=== PATIENT | female | born 1985 ===

== ENCOUNTER 2020-05-16 21:35 | Inpatient (IN) | payer MEDICAID ==
[~2020-05-16] VITALS: Ht 180.3 cm; Wt 111.9 kg
--- NOTE | 2020-05-16 21:38 | NUR ---
VINICIUS SCHMITZ [age] presented to unit via from ED, accompanied by SO, with c/o contractions q6m . VINICIUS SCHMITZ weighed, gowned, voided, and to bed. EFHM and TOCO applied, VS taken. VINICIUS SCHMITZ oriented to bed controls, call light, TV, heat, and A/C controls.
[2020-05-16] MEDS ORDERED: PNV1TABL9 PO (21:59)
[2020-05-16 22:00] VITALS: BP 125/61
[2020-05-16 22:03] VITALS: BP 125/61
[2020-05-16 22:09] VITALS: BP 125/61
[2020-05-16 22:56] LABS: BILIRUBIN,URINE NEGATIVE (NEGATIVE); CLARITY,URINE CLOUDY; COLOR,URINE YELLOW; GLUCOSE, URINE (UA) NEGATIVE (NEGATIVE); KETONES,URINE NEGATIVE (NEGATIVE); LEUKOCYTE ESTERASE ,URINE NEGATIVE (NEGATIVE); NITRITE,URINE NEGATIVE (NEGATIVE); PROTEIN,URINE NEGATIVE (NEGATIVE)
[2020-05-16 23:02] LABS: AMORPHOUS SEDIMENT,UR MOD AMOR PHOSPHATE /LPF; BACTERIA,URINE FEW /HPF; WBC,URINE RARE /HPF
[2020-05-16] MEDS ORDERED: D5 LR IV SOLUTION 1,000 ML IV ONE (23:03)
[2020-05-16 23:09] LABS: AMPHETAMINE SCREEN, URINE NEGATIVE (NEGATIVE); BARBITURATE SCREEN URINE NEGATIVE (NEGATIVE); BENZODIAZEPINES SCREEN URINE NEGATIVE (NEGATIVE); CANNABINOID SCREEN, URINE NEGATIVE (NEGATIVE); COCAINE SCREEN URINE NEGATIVE (NEGATIVE); METHADONE STAT NEGATIVE (NEGATIVE); METHAMPHETAMINE SCREEN URINE S NEGATIVE (NEGATIVE); OPIATE SCREEN URINE NEGATIVE (NEGATIVE); OXYCODONE STAT NEGATIVE (NEGATIVE); PROPOXYPHENE STAT NEGATIVE (NEGATIVE); TRICYCLIC ANTIDEPRESSANTS SCRE NEGATIVE (NEGATIVE)
[2020-05-16] MEDS: D5 LR IV SOLUTION 1,000 ML IV SCH (23:25)
[2020-05-16] MEDS ORDERED: fentaNYL 2 mcg/ml BUPIVA 0.125 100 ML ONE (23:51)
[2020-05-17] VITALS (60 sets, daily range): BP systolic 105–138; BP diastolic 51–96
[2020-05-17 00:36] LABS: BASOPHILS % (AUTO) 0 % (0-10); EOSINOPHILS # (AUTO) 0.1 10^3/uL (0.0-0.3); EOSINOPHILS % (AUTO) 1 % (0-10); HEMATOCRIT 38 % (35-52); HEMOGLOBIN 12.5 g/dL (11.5-16.0); LYMPHOCYTES # (AUTO) 2.4 10^3/uL (1.0-4.0); LYMPHOCYTES % (AUTO) 18 % (12-44); MEAN CORPUSCULAR HEMOGLOBIN 30 pg (25-34); MEAN CORPUSCULAR HGB CONC 33 g/dL (32-36); MEAN CORPUSCULAR VOLUME 92 fL (80-99); MEAN PLATELET VOLUME 11.4 fL (9.0-12.2); MONOCYTES # (AUTO) 0.8 10^3/uL (0.0-1.0); MONOCYTES % (AUTO) 6 % (0-12); NEUTROPHILS # (AUTO) 9.5 10^3/uL (1.8-7.8); NEUTROPHILS % (AUTO) 74 % (42-75); PLATELET COUNT 251 10^3/uL (130-400); WHITE BLOOD COUNT 12.9 10^3/uL (4.3-11.0)
[2020-05-17] MEDS ORDERED: fentaNYL INJECTION 100 MCG/2 ML AMP ONE (01:15)
[2020-05-17] MEDS ORDERED: NALOXONE 0.4 MG/ML 1 ML (NARCAN) VIAL IV PRN (01:15)
[2020-05-17] MEDS ORDERED: fentaNYL INJECTION 100 MCG/2 ML AMP INJ ONE (01:15)
[2020-05-17] MEDS ORDERED: ONDANSETRON 4 MG/2 ML (SDV) Z0FRAN IV PRN (01:15)
[2020-05-17] MEDS ORDERED: LACTATED RINGERS 1,000 ML IV ONE ×2 (01:15)
[2020-05-17] MEDS ORDERED: LIDOCAINE PF 2% 5 ML (XYLOCAINE) VIAL ONE (01:37)
[2020-05-17] MEDS ORDERED: BUPIVACAINE 0.25% 30 ML (SENSORCAINE) VIAL ONE ×2 (01:37→10:27)
[2020-05-17] MEDS: EPIDURAL (fentaNYL 2 MCG/ML BUPIVA 0.125%)100 ML BAG EPI PRN ×2 (01:37→09:53)
[2020-05-17] MEDS ORDERED: CATHETER FLUSH 10 ML SYR IV SCH ×2 (06:00→14:00)
[2020-05-17] MEDS: D5 LR IV SOLUTION 1,000 ML IV SCH (07:40)
[2020-05-17] MEDS ORDERED: OXYTOCIN PRE-MIX DRIP 500 ML IV SCH ×2 (08:00→11:15)
--- NOTE | 2020-05-17 08:50 | History & Physical-OB/GYN ---
ROGERS FIELD MED STUDENT 05/17/20 0850: OB - Chief Complaint & HPI Date/Time Date of Admission: Date of Admission: May 16, 2020 at 23:31 Chief Complaint/History OB-Reason for Admission/Chief: Onset of Labor Hx : 5 Hx Para: 4 Expected Date of Delivery: May 28, 2020 Gestational Age in Weeks: 38 Gestational Age in Days: 5 Allergies and Home Medications Allergies Coded Allergies: No Known Drug Allergies (Unverified , 05/16/20) Home Medications Pnv Cmb#21/Iron/Folic Acid 1 Each Tablet, 1 EACH PO DAILY, (Reported) Patient Home Medication List Home Medication List Reviewed: No OB - History Hx of Present Care: Yes Ultrasounds: Normal mid trimester US Obstetrical Complications: None Medical Complications: None Information Induced Hypertension: No Maternal Gestational Diabetes: No Hemorrhage: No Obstetrical History Hx : 5 Hx Para: 4 Hx # Term Pregnancies: 4 Hx # Pregnancies: 0 Hx Termination: No Hx Total # of Abortions (Spona: 0 Hx Multiple Gestation: No Hx Ectopic : No Hx Stillbirth: No Hx Complication: No Hx Induced Hypertens: No Hx Maternal Gestational Diabet: No Hx Hemorrhage: No Delivery History Adverse Rxn to Tranfusion: No Patient Past Medical History Depression Insomnia Social History/Family History HIV/AIDS: No Recent Infectious Disease Expo: No Sexually Transmitted Disease: No Alcohol Use: Denies Use Recreational Drug Use: No Smoking Cessation: Current every day smoker Immunizations Hepatitis A: Yes Hepatitis B: Yes Date of Influenza Vaccine: Mar 16, 2020 OB - Admission Exam Physical Exam Vitals: Vital Signs 05/17/20 05/17/20 07:40 07:45 Temp 36.4 Pulse 78 Resp 18 B/P (MAP) 117/60 (79) Pulse Ox 96 O2 Delivery Room Air HEENT: Eyes non-injected Lungs: Clear Abdomen: Gravid Extremities: Normal Cervical Dilatation: 5cm Effacement: 75% Station: -3 Membranes: Intact Amniotic Fluid: Clear Heart Rate: 130's Accelerations: Accelerations Present Decelerations: No Decelerations Short Term Variability: Present Delinquency Prevention Officer Variability: Average (6-25) Contractions on Admission: < 5 Minutes Apart Intensity: Firm Romo Scoring Tool (Modified) Dilation (cm): >5cm (3) Effacement (%): 51-79% (2) Descent/Station: -3 (0) Cervix Consistency: Soft (2) Cervix Position: Anterior (2) Labs Laboratory Tests Test 05/16/20 21:50 05/16/20 23:30 05/16/20 23:55 Range/Units Urine Color YELLOW Urine Clarity CLOUDY Urine pH 7.0 5-9 Urine Specific [place] 1.020 1.016-1.022 Urine Protein NEGATIVE NEGATIVE Urine Glucose (UA) NEGATIVE NEGATIVE Urine Ketones NEGATIVE NEGATIVE Urine Nitrite NEGATIVE NEGATIVE Urine Bilirubin NEGATIVE NEGATIVE Urine Urobilinogen 1.0 < = 1.0 MG/DL Urine Leukocyte Esterase NEGATIVE NEGATIVE Urine RBC (Auto) NEGATIVE NEGATIVE Urine RBC NONE /HPF Urine WBC RARE /HPF Urine Squamous Epithelial Cells 2-5 /HPF Urine Crystals PRESENT H /LPF Urine Amorphous Sediment MOD ROQUE PHOSPHATE H /LPF Urine Bacteria FEW H /HPF Urine Casts NONE /LPF Urine Mucus NEGATIVE /LPF Urine Culture Indicated NO Urine Opiates Screen NEGATIVE NEGATIVE Urine Oxycodone Screen NEGATIVE NEGATIVE Urine Methadone Screen NEGATIVE NEGATIVE Urine Propoxyphene Screen NEGATIVE NEGATIVE Urine Barbiturates Screen NEGATIVE NEGATIVE Ur Tricyclic Antidepressants Screen NEGATIVE NEGATIVE Urine Phencyclidine Screen NEGATIVE NEGATIVE Urine Amphetamines Screen NEGATIVE NEGATIVE Urine Methamphetamines Screen NEGATIVE NEGATIVE Urine Benzodiazepines Screen NEGATIVE NEGATIVE Urine Cocaine Screen NEGATIVE NEGATIVE Urine Cannabinoids Screen NEGATIVE NEGATIVE White Blood Count 12.9 H 4.3-11.0 10^3/uL Red Blood Count 4.16 3.80-5.11 10^6/uL Hemoglobin 12.5 11.5-16.0 g/dL Hematocrit 38 35-52 % Mean Corpuscular Volume 92 80-99 fL Mean Corpuscular Hemoglobin 30 25-34 pg Mean Corpuscular Hemoglobin Concent 33 32-36 g/dL Red Cell Distribution Width 15.3 H 10.0-14.5 % Platelet Count 251 130-400 10^3/uL Mean Platelet Volume 11.4 9.0-12.2 fL Immature Granulocyte % (Auto) 1 % Neutrophils (%) (Auto) 74 42-75 % Lymphocytes (%) (Auto) 18 12-44 % Monocytes (%) (Auto) 6 0-12 % Eosinophils (%) (Auto) 1 0-10 % Basophils (%) (Auto) 0 0-10 % Neutrophils # (Auto) 9.5 H 1.8-7.8 10^3/uL Lymphocytes # (Auto) 2.4 1.0-4.0 10^3/uL Monocytes # (Auto) 0.8 0.0-1.0 10^3/uL Eosinophils # (Auto) 0.1 0.0-0.3 10^3/uL Basophils # (Auto) 0.0 0.0-0.1 10^3/uL Immature Granulocyte # (Auto) 0.1 0.0-0.1 10^3/uL OB - Assessment/Plan/Diagnosis Assessment Assessment: active labor Admission Dx Active at term labor Admission Status: Inpatient Order (span 2 midnights) Reason for Inpatient Admission: Active labor Plan Plan: Expectant Management GAIL POWERS MD 05/17/20 1602: OB - Chief Complaint & HPI Date/Time Time Seen by a Provider: 08:50 Allergies and Home Medications Allergies Coded Allergies: No Known Drug Allergies (Unverified , 05/16/20) Home Medications Pnv Cmb#21/Iron/Folic Acid 1 Each Tablet, 1 EACH PO DAILY, (Reported) OB - Admission Exam Physical Exam Abdomen: Gravid Extremities: Normal Cervical Dilatation: 5cm Station: -3 Membranes: Intact Heart Rate: 130's Accelerations: Accelerations Present Short Term Variability: Present Chcf Variability: Average (6-25) Contractions on Admission: < 5 Minutes Apart Intensity: Firm Supervisory-Addendum Brief Verification & Attestation Participated in pt care: history, MDM, physical Personally performed: exam, history, MDM Care discussed with: Medical Student Procedures: n/a I saw and examined patient and did the physical exam as documented in my section. Gestational age 38w3d. Contractions spaced and minimal change, AROM for augmentation. ROGERS FIELD MED STUDENT May 17, 2020 08:50 GAIL POWERS MD May 17, 2020 16:02
--- NOTE | 2020-05-17 10:50 | NUR ---
pitocin increased to 999ml/hr per verbal order of dr pina 1053 spontaneous vaginal delivery of placenta with cord attached. fundal massage per med student and dr pina with lt rubra noted and no clots expressed. 1107 plan of care reviewed with pt. ff1/u with lt rubra noted, no clots expressed. vss. pt assisted out of lithotomy position and to sf. IV infiltrated/dc'd. 1118 iv restarted in right hand 1122 vss ff1/u with lt rubra noted, no clots expressed. vss 1137 vss. ff2/u with mod rubra noted, no clots expressed. 1155 vss. ff2/u with lt-mod rubra noted and 2 4cm clots expressed.
--- NOTE | 2020-05-17 10:55 | Progress Note ---
Standard Progress Note Progress Notes/Assess & Plan Date Seen by a Provider: May 17, 2020 Time Seen by a Provider: 10:30 Progress/Assessment & Plan Called to labor and delivery for increased pain with contraction. Pt was dilated to 7 cm and has had more pain over the past hour. 0.25% Bupivicaine 6 ml via the epidural catheter. Returned 10 minutes later to check on the patients pain relief and she was complete and pushing for delivery. Rapid progression of labor is most likely the cause for her increased pain with contractions. JIM SOLIMAN DO May 17, 2020 10:55
--- NOTE | 2020-05-17 11:11 | OB Labor & Delivery Record ---
Vag Delivery Note Vag Delivery Note Date of Delivery: 05/17/20 Preoperative Diagnosis: Renu Hyman is a (35 /Para 5 / 4,Gestational Age (wks)38with 3 days Postoperative Diagnosis: Same Surgeon: GAIL POWERS Gasoline Truck Operator: Mariluz Messer, MS3 Anesthesia: Epidural Delivery Type: Findings: Viable female , apgars 9/9, weight 8#4 Lacerations: bilateral periurethral abrasions, perineal abrasion Intact placenta with 3 vessel cord. No nuchal cord, body cord or shoulder dystocia Estimated Blood Loss: 350 ml Complications: None Condition: Stable Description of Procedure: The patient is a 35 year old female who presented in active labor. She was admitted and informed consent was obtained. Her labor course was remarkable for augmentation with AROM and pitocin. She progressed to complete dilatation and began to push. She was then set up for delivery. The infant's head was delivered atraumatically in the OA position. The shoulders and remainder of the 's body were then delivered without difficulty. Upon delivery, the was vigorous and placed on maternal abdomen. After a delay the cord was doubly clamped and cut and the remained on maternal abdomen. An intact placenta with 3-vessel cord delivered via Zackery and there was found to be minimal bleeding.~ Vigorous fundal massage was performed and the fundus was found to be firm. IV oxytocin was given. Examination of the vagina and perineum revealed bilateral periurethral abrasions and perineal abrasion not requiring repair. Following the delivery, sponge, instrument and needle counts were correct. Mom and baby were both in stable condition in the labor suite. Vitals - Labs Vital Signs - I&O Vital Signs Date Time Temp Pulse Resp B/P (MAP) Pulse Ox O2 Delivery O2 Flow Rate FiO2 05/17/20 09:30 Room Air 05/17/20 09:20 36.3 74 18 117/59 (78) Room Air 05/17/20 09:15 Room Air 05/17/20 09:05 77 18 106/63 (77) Room Air 05/17/20 09:00 Room Air 05/17/20 08:50 74 18 106/51 (69) Room Air 05/17/20 08:45 Room Air 05/17/20 08:35 75 18 118/59 (78) Room Air 05/17/20 08:30 Room Air 05/17/20 08:20 75 18 117/57 (77) Room Air 05/17/20 08:15 Room Air 05/17/20 08:05 76 18 116/64 (81) Room Air 05/17/20 08:00 Room Air 05/17/20 07:50 69 18 121/68 (85) Room Air 05/17/20 07:45 36.4 Room Air 05/17/20 07:40 78 18 117/60 (79) 96 Room Air 05/17/20 07:30 Room Air 05/17/20 07:25 65 18 120/57 (78) 95 Room Air 05/17/20 07:15 Room Air 05/17/20 07:05 72 18 119/59 (79) 96 Room Air 05/17/20 07:00 70 18 108/58 (75) 96 Room Air 05/17/20 06:45 69 18 118/59 (78) 96 Room Air 05/17/20 06:30 68 18 113/56 (75) 96 Room Air 05/17/20 06:15 66 18 112/55 (74) 96 Room Air 05/17/20 06:00 73 18 114/59 (77) 96 Room Air 05/17/20 05:45 79 18 117/56 (76) 97 Room Air 05/17/20 05:30 77 18 113/56 (75) 97 Room Air 05/17/20 05:15 81 18 122/60 (80) 97 Room Air 05/17/20 05:00 66 18 128/71 (90) 97 Room Air 05/17/20 04:45 36.8 71 18 115/64 (81) 96 Room Air 05/17/20 04:30 78 18 126/59 (81) 97 Room Air 05/17/20 04:15 79 18 110/58 (75) 95 Room Air 05/17/20 04:00 72 18 112/58 (76) 96 Room Air 05/17/20 03:45 76 18 121/57 (78) 97 Room Air 05/17/20 03:30 74 18 122/56 (78) 98 Room Air 05/17/20 03:15 74 18 112/55 (74) 95 Room Air 05/17/20 03:00 83 18 114/59 (77) 96 Room Air 05/17/20 02:45 75 18 118/59 (78) 94 Room Air 05/17/20 02:30 75 18 124/57 (79) 96 Room Air 05/17/20 02:15 83 18 120/56 (77) 98 Room Air 05/17/20 02:00 77 18 123/63 (83) 97 Room Air 05/17/20 01:55 78 18 127/58 (81) 96 Room Air 05/17/20 01:50 83 18 123/96 (105) 98 Room Air 05/17/20 01:45 80 18 106/57 (73) 98 Room Air 05/17/20 01:42 73 18 113/58 (76) 98 Room Air 05/17/20 01:39 76 18 114/55 (74) 98 Room Air 05/17/20 01:36 83 18 110/55 (73) 98 Room Air 05/17/20 01:33 77 18 122/64 (83) 98 Room Air 05/17/20 01:30 83 18 119/65 (83) Room Air 05/17/20 01:00 82 18 122/59 (80) Room Air 05/17/20 00:00 85 18 98 Room Air 05/16/20 23:00 91 18 98 Room Air 05/16/20 22:09 36.6 87 18 98 Room Air 05/16/20 22:03 36.6 87 18 98 Room Air 05/16/20 22:00 36.8 87 18 125/61 (82) 98 Room Air Labs Laboratory Tests 05/16/20 21:50: Urine Color YELLOW, Urine Clarity CLOUDY, Urine pH 7.0, Urine Specific [place] 1.020, Urine Protein NEGATIVE, Urine Glucose (UA) NEGATIVE, Urine Ketones NEGATIVE, Urine Nitrite NEGATIVE, Urine Bilirubin NEGATIVE, Urine Urobilinogen 1.0, Urine Leukocyte Esterase NEGATIVE, Urine RBC (Auto) NEGATIVE, Urine RBC NONE, Urine WBC RARE, Urine Squamous Epithelial Cells 2-5, Urine Crystals PRESENTH, Urine Amorphous Sediment MOD ROQUE PHOSPHATEH, Urine Bacteria FEWH, Urine Casts NONE, Urine Mucus NEGATIVE, Urine Culture Indicated NO, Urine Opiates Screen NEGATIVE, Urine Oxycodone Screen NEGATIVE, Urine Methadone Screen NEGATIVE, Urine Propoxyphene Screen NEGATIVE, Urine Barbiturates Screen NEGATIVE, Ur Tricyclic Antidepressants Screen NEGATIVE, Urine Phencyclidine Screen NEGATIVE, Urine Amphetamines Screen NEGATIVE, Urine Methamphetamines Screen NEGATIVE, Urine Benzodiazepines Screen NEGATIVE, Urine Cocaine Screen NEGATIVE, Urine Cannabinoids Screen NEGATIVE 05/16/20 23:30: 05/16/20 23:55: White Blood Count 12.9H, Red Blood Count 4.16, Hemoglobin 12.5, Hematocrit 38, Mean Corpuscular Volume 92, Mean Corpuscular Hemoglobin 30, Mean Corpuscular Hemoglobin Concent 33, Red Cell Distribution Width 15.3H, Platelet Count 251, Mean Platelet Volume 11.4, Immature Granulocyte % (Auto) 1, Neutrophils (%) (Auto) 74, Lymphocytes (%) (Auto) 18, Monocytes (%) (Auto) 6, Eosinophils (%) (Auto) 1, Basophils (%) (Auto) 0, Neutrophils # (Auto) 9.5H, Lymphocytes # (Auto) 2.4, Monocytes # (Auto) 0.8, Eosinophils # (Auto) 0.1, Basophils # (Auto) 0.0, Immature Granulocyte # (Auto) 0.1 GAIL POWERS MD May 17, 2020 11:11
[2020-05-17] MEDS ORDERED: WITCH HAZEL(TUCKS) 40 EA JAR TOP PRN (11:15)
[2020-05-17] MEDS ORDERED: BENZOCAINE/MENTHOL (DERMOPLAST) 60 ML CAN TP PRN (11:15)
[2020-05-17] MEDS ORDERED: TETANUS,DIPTH,PERTUSS P/F (BOOSTRIX) 0.5 ML VIAL IM ONE (11:15)
[2020-05-17] MEDS ORDERED: MEASLES,MUMPS,RUBELLA 1 EA INJ SQ ONE (11:15)
--- NOTE | 2020-05-17 12:35 | NUR ---
ff3/u. pt reports needing to pee. assisted up to bathroom. ambulates with steady gait. void and pericare/pad changed. back to bed. plan of care reviewed with pt. pt instructed to call rn if feeling like she has heavy bleeding or is passing clots.
--- NOTE | 2020-05-17 13:15 | NUR ---
pt transferred to room 310 with belongings. Ambulates self accompanied by zaid and RN. Oriented to room, call light and bed controls as well as bathroom supplies and info packet at bedside. pt denies needs or questions at this time.
--- NOTE | 2020-05-17 13:34 | NUR ---
report received from MICHAEL Caro.
[2020-05-17] MEDS: IBUPROFEN 600 MG (MOTRIN) TAB PO SCH ×2 (14:12→19:51)
--- NOTE | 2020-05-17 19:27 | NUR ---
report given to next shift.
[2020-05-17] MEDS: DOCUSATE SODIUM 100 MG (COLACE) CAP PO SCH (19:51)
[2020-05-18] VITALS: BP 120/59
[2020-05-18] MEDS: IBUPROFEN 600 MG (MOTRIN) TAB PO SCH ×2 (02:56→11:22)
[2020-05-18 04:00] VITALS: BP 112/54
[2020-05-18 06:47] LABS: BASOPHILS % (AUTO) 0 % (0-10); EOSINOPHILS # (AUTO) 0.1 10^3/uL (0.0-0.3); EOSINOPHILS % (AUTO) 1 % (0-10); HEMATOCRIT 33 % (35-52); HEMOGLOBIN 10.8 g/dL (11.5-16.0); LYMPHOCYTES # (AUTO) 2.4 10^3/uL (1.0-4.0); LYMPHOCYTES % (AUTO) 20 % (12-44); MEAN CORPUSCULAR HEMOGLOBIN 30 pg (25-34); MEAN CORPUSCULAR HGB CONC 33 g/dL (32-36); MEAN CORPUSCULAR VOLUME 91 fL (80-99); MEAN PLATELET VOLUME 11.5 fL (9.0-12.2); MONOCYTES # (AUTO) 0.7 10^3/uL (0.0-1.0); MONOCYTES % (AUTO) 6 % (0-12); NEUTROPHILS # (AUTO) 8.5 10^3/uL (1.8-7.8); NEUTROPHILS % (AUTO) 72 % (42-75); PLATELET COUNT 255 10^3/uL (130-400); WHITE BLOOD COUNT 11.8 10^3/uL (4.3-11.0)
[2020-05-18] MEDS ORDERED: FERR325T18 PO (07:36)
[2020-05-18] MEDS ORDERED: IBUP-844 PO (07:36)
[2020-05-18 07:45] VITALS: BP 124/68
[2020-05-18] MEDS: DOCUSATE SODIUM 100 MG (COLACE) CAP PO SCH (11:22)
[2020-05-18] MEDS ORDERED: CALCIUM CARBONATE 500 MG (TUMS) TAB.CHEW PO ONE (11:30)
--- NOTE | 2020-05-18 14:35 | NUR ---
Discharge instructions explained, signed and copy to patient. pt verbalized understanding of instructions and denied questions. Discussed with pt medications and verbalized understanding.
--- NOTE | 2020-05-18 14:37 | Discharge Summary ---
ROGERS FIELD MED STUDENT 05/18/20 1435: Discharge Summary Hospital Course Problems Reviewed?: Yes Hospital Course Date of Admission: May 16, 2020 at 23:31 Admission Diagnosis : Family Physician/Provider: No,Local Physician Date of Discharge: 05/18/20 Discharge Diagnosis: Status post spontaneous vaginal delivery and acute blood loss anemia Hospital Course: Ms. Renu Hyman is a 25 yo F who was admitted on 05/16 for signs of labor. She had a after AROM on 05/17 without any major complications or sever blood loss. She was recovering well day 1 and wanted to go home as soon as possible. Patient was cleared medically to go home on day one. Labs and Pending Lab Test: Laboratory Tests 05/18/20 06:15: White Blood Count 11.8H, Red Blood Count 3.60L, Hemoglobin 10.8L, Hematocrit 33L , Mean Corpuscular Volume 91, Mean Corpuscular Hemoglobin 30, Mean Corpuscular Hemoglobin Concent 33, Red Cell Distribution Width 15.2H, Platelet Count 255, Mean Platelet Volume 11.5, Immature Granulocyte % (Auto) 1, Neutrophils (%) (Auto) 72, Lymphocytes (%) (Auto) 20, Monocytes (%) (Auto) 6, Eosinophils (%) (Auto) 1, Basophils (%) (Auto) 0, Neutrophils # (Auto) 8.5H, Lymphocytes # (Auto) 2.4, Monocytes # (Auto) 0.7, Eosinophils # (Auto) 0.1, Basophils # (Auto) 0.0, Immature Granulocyte # (Auto) 0.1 Home Meds Active Ibu (Ibuprofen) 600 Mg Tablet 600 Mg PO Q6H PRN Ferrous Sulfate 325 Mg Tablet 325 Mg PO DAILY@0700 Reported Complete Caplet (Pnv Cmb#21/Iron/Folic Acid) 1 Each Tablet 1 Each PO DAILY Assessment/Pt DC Instructions Patient is doing well day one with continued decrease in vaginal bleeding. She is clear to go home but instructed to seek medical attention is signs of illness, severe bleeding, or other medical concerns arise. Discharge Diet: No Restrictions Activity as Tolerated: Yes Discharge Physical Examination Allergies: Coded Allergies: No Known Drug Allergies (Unverified , 05/16/20) General Appearance: No Apparent Distress, WD/WN HEENT: Moist Mucous Membranes Respiratory: Chest Non Tender, Lungs Clear, Normal Breath Sounds, No Accessory Muscle Use, No Respiratory Distress Cardiovascular: Regular Rate, Rhythm, No Edema, No Gallop, No Murmur, Normal Peripheral Pulses Gastrointestinal: Normal Bowel Sounds Extremity: Normal Capillary Refill Skin: Normal Color, Warm/Dry Neurologic/Psychiatric: Alert, Normal Mood/Affect Discharge Summary Date of Admission May 16, 2020 at 23:31 Date of Discharge Discharge Date: May 18, 2020 Admission Diagnosis Spontaneous vaginal delivery Consults/Procedures Procedures Spontaneous vaginal delivery Discharge Diagnosis Spontaneous vaginal delivery Clinical Quality Measures DVT/VTE Risk/Contraindication: Risk Factor Score Per Nursin RFS Level Per Nursing on Admit: 1=Low/No VTE PPX GAIL POWERS MD 05/18/20 1446: Discharge Summary Discharge Physical Examination Allergies: Coded Allergies: No Known Drug Allergies (Unverified , 05/16/20) Supervisory-Addendum Brief Verification & Attestation Participated in pt care: history, MDM, physical Personally performed: exam Care discussed with: Medical Student Procedures: n/a I did my own history and exam and agree with those documented by the medical student. ROGERS FIELD MED STUDENT May 18, 2020 14:35 GAIL POWERS MD May 18, 2020 14:46
[2020-05-19] MEDS ORDERED: FERROUS SULF 325 MG (IRON) TAB PO SCH (07:00)
== END 2020-05-18 14:45 | disposition home or self-care (01) | DRG 806 ==
LOC: WSo 21:35 → LDRP 21:35 → WSo 23:30 → LDRP 23:31
PROVIDERS: ADMIT Family Medicine; ATTEND Family Medicine
PROC: 10E0XZZ Delivery of Products of Conception, External Approach (ICD-10-PCS; principal; 2020-05-17)
PROC: 10907ZC Drainage of Amniotic Fluid, Therapeutic from Products of Conception, Via Natural or Artificial Opening (ICD-10-PCS; 2020-05-17)
DX: O99.334 Smoking (tobacco) complicating childbirth (principal); D62 Acute posthemorrhagic anemia; Z37.0 Single live birth; F17.210 Nicotine dependence, cigarettes, uncomplicated; Z3A.38 38 weeks gestation of pregnancy; O90.81 Anemia of the puerperium
CPT/HCPCS: 36415; 80306; 81000; 85025; 86850; 86900; 86901; 87635